=== PATIENT | female | born 1965 | race Caucasian/White ===

== ENCOUNTER 2016-10-14 06:53 | Outpatient (CLI) | payer OTHER ==
[2016-10-14 08:52] LABS: #Basophils 0.1 thou/uL (0.0-0.2); #Eosinphils 0.2 thou/uL (0.0-0.7); #Lymphocytes 2.3 thou/uL (1.20-3.40); #Monocytes 0.6 thou/uL (0.11-0.59); #Neutrophils 3.9 thou/uL (1.40-6.50); %Basophils 0.8 % (0.0-1.0); %Eosinophils 2.9 % (0.0-10.0); %Monocytes 8.5 % (0.0-10.0); %Neutrophils 55.8 % (42.0-75.0); Hemoglobin 12.1 g/dL (12.0-16.0); Mean Corpuscular HGB CONC 32.2 g/dL (32.0-36.0); Mean Corpuscular Hemoglobin 26.1 pg (27.0-31.0); Mean Corpuscular Volume 81.1 fl (81.0-99.0); Mean Platelet Volume 8.5 fL (7.4-10.4); Platelet Count 298 thou/uL (130-400); RBC Distribution Width 15.4 % (11.5-14.5); Red Blood Cell (RBC) Count 4.64 mill/uL (4.20-5.40); White Blood Cell (WBC) Count 7.1 thou/uL (4.8-10.8)
[2016-10-14 09:03] LABS: ALT (SGPT) 81 U/L (0-55); AST (SGOT) 41 U/L (5-34); Albumin 4.3 g/dL (3.5-5.0); Alkaline Phosphatase 105 U/L (40-150); Anion Gap 15 mmol/L (10-20); BUN (Urea Nitrogen) 17 mg/dL (9.8-20.1); Bilirubin, Total 0.4 mg/dL (0.2-1.2); Calc. Creatinine Clearance 0 mL/min (70-130); Calcium 9.4 mg/dL (7.8-10.44); Carbon Dioxide 25 mmol/L (22-29); Cardiac Risk 3.4 (Less than 4.5); Chloride 104 mmol/L (98-107); Cholesterol 213 mg/dL (< 200 Desired); Estimated GFR-MDRD 80; Globulin 2.8 g/dL (2.4-3.5); Glucose 100 mg/dL (70-105); HDL Cholesterol 63 mg/dL (>60 Neg Risk); LDL Cholesterol, Calculated 122 mg/dL; Potassium 3.4 mmol/L (3.5-5.1); Protein, Total 7.1 g/dL (6.0-8.3); Sodium 141 mmol/L (136-145); Triglycerides 139 mg/dL (Less than 150)
== END 2016-10-14 06:54 | disposition home or self-care (01) ==
LOC: NAV LAB 06:53
PROVIDERS: ATTEND Internal Medicine
DX: Z00.00 Encounter for general adult medical examination without abnormal findings (principal)
CPT/HCPCS: 36415; 80053; 80061; 85025; 87086

== ENCOUNTER 2017-01-28 08:45 | Outpatient (CLI) | payer OTHER ==
[2017-01-28 12:51] LABS: ALT (SGPT) 43 U/L (8-55); AST (SGOT) 23 U/L (5-34); Albumin 4.3 g/dL (3.5-5.0); Alkaline Phosphatase 117 U/L (40-150); Anion Gap 17 mmol/L (10-20); BUN (Urea Nitrogen) 18 mg/dL (9.8-20.1); Bilirubin, Total 0.4 mg/dL (0.2-1.2); Calc. Creatinine Clearance 0 mL/min (70-130); Calcium 9.1 mg/dL (7.8-10.44); Carbon Dioxide 22 mmol/L (22-29); Cardiac Risk 3.3 (Less than 4.5); Chloride 107 mmol/L (98-107); Cholesterol 197 mg/dl (< 200 Desired); Estimated GFR-MDRD 82; Globulin 2.2 g/dL (2.4-3.5); Glucose 96 mg/dL (70-105); HDL Cholesterol 60 mg/dL (>60 Neg Risk); LDL Cholesterol, Calculated 113 mg/dL; Potassium 4.4 mmol/L (3.5-5.1); Protein, Total 6.5 g/dL (6.0-8.3); Sodium 142 mmol/L (136-145); Triglycerides 119 mg/dL (Less than 150)
== END 2017-01-28 08:46 | disposition home or self-care (01) ==
LOC: NAVSJIPCSP 08:45
PROVIDERS: ATTEND Internal Medicine
DX: E78.5 Hyperlipidemia, unspecified (principal); E87.6 Hypokalemia
CPT/HCPCS: 36415; 80053; 80061

== ENCOUNTER 2018-07-27 08:12 | Emergency (ER) | payer OTHER ==
--- NOTE | 2018-07-27 10:08 | RAD ---
RIGHT HIP TWO VIEWS: History: Injury with pain to right hip. FINDINGS: Femoral head contour is normal. No fracture identified. No osseous abnormality is seen. IMPRESSION: No acute finding. POS: [facility]
--- NOTE | 2018-07-27 10:35 | RAD ---
PELVIS 1 VIEW: Date: 07/27/18 HISTORY: Trauma. Fall. COMPARISON: None. FINDINGS: No acute fracture or malalignment. Low grade narrowing of both hip joints. Mild facet arthropathy low er lumbar spine. Sacral struts are intact. Phleboliths in the pelvis. Obturator rings are intact. Mil d soft tissue swelling of the right hip. IMPRESSION: 1. No acute fracture or malalignment. 2. Old left anterior superior iliac spine injury. POS: [facility]
== END 2018-07-27 09:31 | disposition home or self-care (01) ==
LOC: NAV ERS 08:12
DX: S30.0XXA Contusion of lower back and pelvis, initial encounter (principal); I10 Essential (primary) hypertension; K21.9 Gastro-esophageal reflux disease without esophagitis; J45.909 Unspecified asthma, uncomplicated; Z79.899 Other long term (current) drug therapy; Z79.82 Long term (current) use of aspirin; W17.89XA Other fall from one level to another, initial encounter
CPT/HCPCS: 72170